=== PATIENT | female | born 1930 | race Caucasian/White ===

== ENCOUNTER → 2018-04-15 | Outpatient (CLI) | payer MEDICARE, OTHER ==
--- NOTE | 2018-04-15 16:59 | RAD ---
CLINICAL INDICATION: GLO WARNER, who is 87 years of age, presents for diagnostic imaging for palpable abnormality in the right breast COMPARISON: No prior imaging is available for comparison. TECHNIQUE: The patient was unable to tolerate mammogram and therefore ultrasound was performed. ULTRASOUND FINDINGS: Targeted ultrasound of the right breast was performed 12:00 position, 4 cm from the nipple: A hypoechoic irregular mass and irregular, non circumscribed margins is present measuring 3.3 x 2.8 x 2 cm. IMPRESSION: 1. Right breast mass with suspicious imaging features for which tissue biopsy is recommended and can be performed with ultrasound imaging guidance. RECOMMENDATION: Suspicious right breast mass which can be further evaluated with ultrasound-guided biopsy as clinically indicated given patient's comorbidities. BIRADS 4: SUSPICIOUS Electronically signed by: Pantera Harrington MD (04/15/2018 4:56 PM) [facility]
== END | disposition home or self-care (01) ==
LOC: MAMMO 13:02
PROVIDERS: ATTEND Internal Medicine
DX: N63.12 Unspecified lump in the right breast, upper inner quadrant (principal)
CPT/HCPCS: 76641